=== PATIENT | female | born 1935 | race Caucasian/White ===

== ENCOUNTER 2018-11-25 06:25 | Emergency (ER) | payer MEDICAID, MEDICARE ==
[2018-11-25 06:37] VITALS: BMI 23.6
[2018-11-25] MEDS ORDERED: Sodium Chloride 0.9% 500 ML IV STA (07:26)
[2018-11-25] MEDS ORDERED: Alum-Mag Hydrox-Simethicone Susp (30 mL) PO STA (07:27)
--- NOTE | 2018-11-25 07:29 | ED PDOC ---
Arrival/HPI - General Chief Complaint: GI Problem Time Seen by Provider: 11/25/18 07:12 Historian: Patient, Family (grandaughters) - History of Present Illness Narrative History of Present Illness (Text): 11/25/18 07:28 83 year old female, hypertension, diabetes, osteoporosis, and breast cancer (left side mastectomy 2008), presents to the emergency department, accompanied by her granddaughters, complaining of nausea, vomiting, and diarrhea, for the past 24 hours. Patient reports multiple episodes of vomiting and multiple episodes of watery diarrhea. As per granddaughter several family members have similar symptoms. She denies fevers, chills, headache, dizziness, chest pain, shortness of breath, dyspnea on exertion, cough, back pain, neck pain, or any other complaint. Dr. Huggins Time/Duration: 24 hours Symptom Onset: Gradual Symptom Course: Unchanged Activities at Onset: Light Context: Home Past Medical History - Provider Review Nursing Documentation Reviewed: Yes - Cardiac Hx Cardiac Disorders: Yes Hx Hypertension: Yes - Endocrine/Metabolic Hx Endocrine Disorders: Yes Hx Diabetes Mellitus Type 2: Yes - Musculoskeletal/Rheumatological Hx Arthritis: Yes Hx Osteoporosis: Yes - Gastrointestinal Hx Gastroesophageal Reflux: Yes - Genitourinary/Gynecological Other/Comment: Breast Cancer - Psychiatric Hx Depression: No Hx Emotional Abuse: No Hx Physical Abuse: No Hx Substance Use: No - Surgical History Hx Mastectomy: Yes (Left Side - 2008) - Suicidal Assessment Feels Threatened In Home Enviroment: No Family/Social History - Physician Review Nursing Documentation Reviewed: Yes Family/Social History: No Known Family HX Smoking Status: Never Smoked Hx Alcohol Use: No Hx Substance Use: No Hx Substance Use Treatment: No Allergies/Home Meds Allergies/Adverse Reactions: Allergies diclofenac Allergy (Verified 11/25/18 06:37) ANAPHYLAXIS Home Medications: Home Meds Medication Instructions Recorded Confirmed Atenolol [Tenormin] 100 mg PO DAILY 11/25/18 11/25/18 Insulin Glargine,Hum.rec.anlog 21 unit SQ HS 11/25/18 11/25/18 [Lantus Solostar] Lisinopril [Zestril] 20 mg PO DAILY 11/25/18 11/25/18 MetFORMIN [glucOPHAGE] 1,000 mg PO DAILY 11/25/18 11/25/18 Omeprazole 20 mg PO DAILY 11/25/18 11/25/18 Review of Systems - Physician Review All systems were reviewed & negative as marked: Yes - Review of Systems Constitutional: absent: Fevers Eyes: absent: Vision Changes Respiratory: absent: SOB, Cough Cardiovascular: absent: Chest Pain Gastrointestinal: Diarrhea, Nausea, Vomiting Genitourinary Female: absent: Dysuria, Frequency, Hematuria Musculoskeletal: absent: Back Pain, Neck Pain Neurological: absent: Headache, Dizziness Physical Exam Vital Signs Reviewed: Yes Vital Signs Temp Pulse Resp BP Pulse Ox 11/25/18 06:41 98 F 81 17 153/107 H 97 Temperature: Afebrile Blood Pressure: Hypertensive Pulse: Regular Respiratory Rate: Normal Appearance: Positive for: Well-Appearing, Non-Toxic, Comfortable Pain Distress: None Mental Status: Positive for: Alert and Oriented X 3 - Systems Exam Head: Present: Atraumatic, Normocephalic Pupils: Present: PERRL Extroacular Muscles: Present: EOMI Conjunctiva: Present: Normal Mouth: Present: Moist Mucous Membranes Neck: Present: Normal Range of Motion Respiratory/Chest: Present: Clear to Auscultation, Good Air Exchange. No: Respiratory Distress, Accessory Muscle Use Cardiovascular: Present: Regular Rate and Rhythm, Normal S1, S2. No: Murmurs Abdomen: Present: Tenderness (epigastric tenderness). No: Distention, Peritoneal Signs, Rebound, Guarding Back: Present: Normal Inspection Upper Extremity: Present: Normal Inspection. No: Cyanosis, Edema Lower Extremity: Present: Normal Inspection. No: Edema Neurological: Present: GCS=15, CN II-XII Intact, Speech Normal Skin: Present: Warm, Dry, Normal Color. No: Rashes Psychiatric: Present: Alert, Oriented x 3, Normal Insight, Normal Concentration Medical Decision Making ED Course and Treatment: 11/25/18 07:28 Impression: 83 year old female who presents to the emergency department complaining of nausea, vomiting, and diarrhea. Differential Diagnosis included but are not limited to: Gastroenteritis Plan: -- Labs -- Pepcid -- IV fluids -- Maalox Plus -- Reassess and disposition Prior Visits: Notes and results from previous visits were reviewed. Progress Notes: 11/25/18 09:16 EKG reviewed, shows: NSR at 87bpm with T-wave inversion in V3 11/25/18 09:18 CT of Abdomen and Pelvis reviewed by radiologist, shows: IMPRESSION: Findings consistent with enteritis and colitis. Questionable of perigastric ascites and/or wall edema involving the distal aspect of the gastric wall and pylorus region; rule out gastritis. There is small amount of abdominal and pelvic ascites as described.. Mild fatty hepatic infiltration. Probable small calcified fundal fibroid. Wall thickening of the urinary bladder likely due to incomplete distention however correlation with urinalysis recommended to exclude cystitis. Cardiomegaly. Moderately large hiatal hernia. 11/25/18 13:10 Patient's labs reviewed with noted low Magnesium. Patient was treated with Magnesium IV and hydrated. Patient's repeat Magnesium was an error. The 3rd Magnesium is correct. Her magnesium improved. Her CT reported was reviewed with noted enteritis and colitis. UA negative for UTI. I treated her with Flagyl considering her age and elevated WBC. She's been afebrile. She is tolerating PO fluids. Her abdomen is soft and not tender and not distended. She is hungry and wants to go home. She has a great support system with her daughters. I explained to them in mozambican and chinese the results and advised for them to return to the ED if symptoms worsen, fever, unable to tolerate fluids, or any other concern. - Lab Interpretations I have reviewed the lab results: Yes - EKG Interpretation Interpreted by ED Physician: Yes Type: 12 lead EKG - Medication Orders Current Medication Orders: Al Hydrox/Mg Hydrox/Simethicone (Maalox Plus 30 Ml) 30 ml PO STAT STA Stop: 11/25/18 07:28 Famotidine (Pepcid) 20 mg IVP STAT STA Stop: 11/25/18 07:27 Sodium Chloride (Sodium Chloride 0.9%) 500 mls @ 1,000 mls/hr IV .Q30M STA Stop: 11/25/18 07:55 - Scribe Statement The provider has reviewed the documentation as recorded by the Xochitl Gamez Provider Vinnyibe Attestation: All medical record entries made by the Vinnyibbetsy were at my direction and personally dictated by me. I have reviewed the chart and agree that the record accurately reflects my personal performance of the history, physical exam, medical decision making, and the department course for this patient. I have also personally directed, reviewed, and agree with the discharge instructions and disposition. Disposition/Present on Arrival - Present on Arrival Any Indicators Present on Arrival: No History of DVT/PE: No History of Uncontrolled Diabetes: No Urinary Catheter: No History of Decub. Ulcer: No History Surgical Site Infection Following: None - Disposition Have Diagnosis and Disposition been Completed?: Yes Diagnosis: Enteritis Disposition: HOME/ ROUTINE Disposition Time: 13:10 Patient Plan: Discharge Condition: IMPROVED Discharge Instructions (ExitCare): Diarrhea in Adolescents and Adults Additional Instructions: RICKIE MULLEN, thank you for letting us take care of you today. Your provider was Vipin Dean DO and you were treated for Enteritis. The emergency medical care you received today was directed at your acute symptoms. If you were prescribed any medication, please fill it and take as directed. It may take several days for your symptoms to resolve. Return to the Emergency Department if your symptoms worsen, do not improve, or if you have any other problems. Please contact your doctor or call one of the physicians/clinics you have been referred to that are listed on the Patient Visit Information form that is included in your discharge packet. Bring any paperwork you were given at discharge with you along with any medications you are taking to your follow up visit. Our treatment cannot replace ongoing medical care by a primary care provider outside of the emergency department. Thank you for allowing the [facility] team to be part of your care today. If you had an X-Ray or CT scan: A Radiologist will review the ED reading if any change in treatment is needed we will contact you. If you had a blood, urine, or wound culture: It will take several days for the results, if any change in treatment is needed we will contact you. If you had an STI test: It will take 48 hours for the results. Please call after 1 week if you have not heard back. Prescriptions: Metronidazole [Flagyl] 500 mg PO TID #30 tablet Ranitidine HCl [Zantac] 150 mg PO BID PRN #30 tablet PRN Reason: Pain, Mild (1-3) Referrals: Ashley Huggins DO [Primary Care Provider] - Follow up with primary Forms: [employer] (Urdu)
[2018-11-25 07:55] LABS: BASO # 0.01 K/mm3 (0.0-2.0); BASO % 0.1 % (0.0-3.0); EOS % 0.2 % (1.5-5.0); GRAN # 10.75 (1.4-6.5); GRAN % 81.9 % (50.0-68.0); HEMOGLOBIN 11.7 g/dL (12.0-16.0); LYMPH % 7.8 % (22.0-35.0); MEAN CELL VOLUME 82.5 fl (80.0-105.0); MEAN CORPUSCULAR HEMOGLOBIN 25.3 pg (25.0-35.0); MEAN CORPUSCULAR HGB CONC 30.7 g/dl (31.0-37.0); MEAN PLATELET VOLUME 9.8 fl (7.0-11.0); MONO # 1.3 (0.1-0.6); RBC 4.62 10^6/uL (3.5-6.1); RED CELL DISTRIBUTION WIDTH 13.6 % (11.5-14.5); WHITE BLOOD COUNT 13.1 10^3/uL (4.5-11.0)
[2018-11-25 07:59] VITALS: RESP 18
[2018-11-25 08:13] LABS: ALB/GLOB RATIO 1.2 (1.1-1.8); ALBUMIN 4.2 g/dL (3.0-4.8); ALT/SGPT 22 U/L (7-56); AST/SGOT 22 U/L (14-36); BLOOD UREA NITROGEN 21 mg/dL (7-21); CALCIUM 9.6 mg/dL (8.4-10.5); GFR NON-AFRICAN AMERICAN > 60; LIPASE 42 U/L (23-300)
[2018-11-25] MEDS ORDERED: Magnesium Sulfate 2 gm/50 ml 2 GM/50 ML BAG IVPB ONE (08:16)
[2018-11-25] MEDS ORDERED: Iohexol 350 MG/100 ML VIAL ONE (08:30)
[2018-11-25 08:40] LABS: URINE BILIRUBIN NEGATIVE (NEGATIVE); URINE BLOOD TRACE-INTACT (NEGATIVE); URINE GLUCOSE (UA) 250 mg/dL (NEGATIVE); URINE LEUKOCYTE ESTERASE NEGATIVE Leu/uL (NEGATIVE); URINE PROTEIN TRACE mg/dL (<30 mg/dL); URINE UROBILINOGEN 0.2 E.U./dL (<1 E.U./dL)
[2018-11-25 08:41] LABS: URINE APPEARANCE CLEAR (CLEAR); URINE COLOR YELLOW (YELLOW)
[2018-11-25 08:50] LABS: URINE BACTERIA SMALL /hpf; URINE WBC 0 - 2 /hpf (0-6)
--- NOTE | 2018-11-25 09:13 | CT ---
Date of service: 11/25/2018 PROCEDURE: CT Abdomen and Pelvis with Oral contrast. HISTORY: Abdominal pain; rule out diverticulitis or enteritis. COMPARISON: Comparison made with prior PET-CT scan 10/19/2014 TECHNIQUE: Contiguous axial images of the abdomen and pelvis performed following intravenous injection of approximately 100 cc Omnipaque 350 contrast material. Additional 2D sagittal and coronal reformats generated. Radiation dose: Total exam DLP = 341.41 mGy-cm. This CT exam was performed using one or more of the following dose reduction techniques: Automated exposure control, adjustment of the mA and/or kV according to patient size, and/or use of iterative reconstruction technique. FINDINGS: LOWER THORAX: Heart is enlarged. No significant pericardial effusion. There is a moderately large hiatal hernia. Lung bases demonstrate mild dependent/passive type atelectasis. No focal consolidation. No effusion or basilar pneumothorax. LIVER: Liver exhibits normal size measuring approximately 13 cm in CC dimension. Portal and splenic veins are opacified. Mild fatty hepatic infiltration. Small amount of perihepatic ascites present. GALLBLADDER AND BILE DUCTS: Gallbladder is moderately distended. No definitive evidence of intraluminal gallbladder calculi. PANCREAS: Pancreas appears atrophic and fatty replaced. No pancreatic masses collections or calcifications. SPLEEN: Spleen exhibits normal size and attenuation pattern without mass collection or calcification. Small amount of Johanny splenic ascites present extending inferiorly along the left paracolic gutter and into the pelvis.. Small amount of pelvic ascites also noted ADRENALS: Slightly nodular appearing adrenal glands. KIDNEYS AND URETERS: Unremarkable. No stone or hydronephrosis. BLADDER: Urinary bladder is incompletely distended which may in part account for thick-walled appearance. Correlation with urinalysis recommended. REPRODUCTIVE: Probable small calcified right fundal fibroid. There also peripherally uterine vascular calcifications present. APPENDIX: No evidence of acute appendicitis. What is felt to represent normal appendix best seen on axial series 3, image number 79 through 100. BOWEL: Evaluation of the bowel is somewhat limited due to the lack of oral contrast material. The stomach is incompletely distended which in part accounts for thick-walled appearance however there does appear to be either small amount of perigastric ascites or wall edema along the distal body and pylorus region of the stomach; rule out gastritis. Multiple of this nondistended fluid-filled thick-walled loops of small bowel present the consistent with enteritis. In addition, there also appears to be wall thickening of portions of the colon consistent with nonspecific colitis as well.. PERITONEUM: As mentioned above, perihepatic and perisplenic ascites seen with ascites extending along the left paracolic gutter into the pelvis. No evidence of free intraperitoneal air LYMPH NODES: Unremarkable. No enlarged lymph nodes. VASCULATURE: Unremarkable. No aortic aneurysm. There is aortic atherosclerotic calcification or mural plaque present. BONES: Multilevel degenerative spondylosis of the lower thoracic and lumbar spine.. [id number]-bz-[id number] levoscoliosis lower lumbar region. OTHER FINDINGS: None. IMPRESSION: Findings consistent with enteritis and colitis. Questionable of perigastric ascites and/or wall edema involving the distal aspect of the gastric wall and pylorus region; rule out gastritis. There is small amount of abdominal and pelvic ascites as described.. Mild fatty hepatic infiltration. Probable small calcified fundal fibroid. Wall thickening of the urinary bladder likely due to incomplete distention however correlation with urinalysis recommended to exclude cystitis. Cardiomegaly. Moderately large hiatal hernia.
--- NOTE | 2018-11-25 12:58 | CARD ---
APPROVED REPORT Date of service: 11/25/2018 EKG Measurement Heart [id number] [id number] <Conclusion> Normal sinus rhythm Possible Inferior infarct, age undetermined Abnormal ECG
[2018-11-25 13:10] VITALS: BP 146/70; PULSE 69; TEMP 98.2; O2SAT 97
== END 2018-11-25 13:10 | disposition home or self-care (01) ==
LOC: ED 06:25
DX: K52.9 Noninfective gastroenteritis and colitis, unspecified (principal); E11.9 Type 2 diabetes mellitus without complications; I10 Essential (primary) hypertension; Z85.3 Personal history of malignant neoplasm of breast
CPT/HCPCS: 74177; 80053; 81001; 82948; 83690; 83735; 85025; 87086; 93005; 96365; 96375; 99284; J7040; Q9967